=== PATIENT | female | born 1985 | race Caucasian/White ===

== ENCOUNTER 2016-10-28 17:58 | Inpatient (IN) | payer OTHER ==
[~2016-10-28] VITALS: Ht 162.6 cm; Wt 79.8 kg
[2016-10-28] MEDS ORDERED: DEXT 5%/LR + PITOCIN 20UNITS/L 1,000 ML IV SCH (19:35)
[2016-10-28] MEDS ORDERED: PREN-88 PO (19:36)
[2016-10-28] MEDS ORDERED: NALOXONE HCL 0.4 MG/ML 1ML VIAL IM PRN (19:45)
[2016-10-28] MEDS ORDERED: METHYLERGONOVINE MALEATE 0.2 MG/ML IM PRN (19:45)
[2016-10-28] MEDS ORDERED: LIDOCAINE HCL 1% 20ML VIAL (Pyxis) INJ INFIL SCH (19:45)
[2016-10-28] MEDS ORDERED: CARBOPROST TROMETHAMINE 250 MCG/ML AMPUL IM PRN (19:45)
[2016-10-28] MEDS ORDERED: MISOPROSTOL 100MCG TABLET VG SCH (19:45)
[2016-10-28] MEDS ORDERED: BUTORPHANOL TARTRATE 2 MG/ML VIAL IV PRN (19:45)
[2016-10-28 19:57] LABS: BASOPHILS % 0.6 % (0.0-2.0); DIFFERENTIAL COMMENT 0; EOSINOPHILS % 0.6 % (0.0-5.0); HEMATOCRIT. 30.8 % (36.0-48.0); HEMOGLOBIN. 10.3 g/dL (12.0-16.0); LYMPHOCYTES % 13.9 % (20.0-50.0); MEAN CORPUSCULAR HEMOGLOBIN 26.5 pg (28.0-32.0); MEAN CORPUSCULAR HGB CONC 33.4 g/dL (31.0-37.0); MEAN CORPUSCULAR VOLUME 79.2 fL (81.0-99.0); MEAN PLATELET VOLUME 10.4 fl (7.4-10.4); MONOCYTES % 4.5 % (2.0-8.0); NEUTROPHILS % 80.4 % (40.0-76.0); PLATELET 199 x1000/uL (130-400); RED BLOOD CELL COUNT 3.89 mill/uL (4.2-5.4); RED CELL DISTRIBUTION WIDTH 15.2 % (11.6-14.6); WHITE BLOOD COUNT 9.3 x1000/uL (4.5-11.0)
[2016-10-28 19:58] LABS: CLARITY URINE CLEAR (CLEAR); COLOR URINE YELLOW (YELLOW); GLUCOSE URINE NEGATIVE (NEGATIVE); KETONES URINE TRACE (NEGATIVE); LEUKOCYTE ESTERASE URINE 1+ (NEGATIVE); NITRITE URINE NEGATIVE (NEGATIVE); OCCULT BLOOD URINE NEGATIVE (NEGATIVE); PROTEIN URINE 1+ (NEGATIVE); SPECIFIC GRAVITY URINE 1.026 (1.005-1.030)
[2016-10-28] MEDS ORDERED: PENICILLIN G POTASSIUM 5 MMU in DEXT 5% WATER 100 ML IV SCH (20:00)
[2016-10-28 20:06] LABS: INR 0.9; PARTIAL THROMBOPLASTIN TIME 31.5 sec (24.0-34.0); PROTHROMBIN TIME 9.7 sec
[2016-10-28 20:09] LABS: *AMPHETAMINES SCREEN URINE NEGATIVE (NEGATIVE); *BARBITURATES SCREEN URINE NEGATIVE (NEGATIVE); *BENZODIAZEPINES SCREEN URINE NEGATIVE (NEGATIVE); *COCAINE SCREEN URINE NEGATIVE (NEGATIVE); CANNABINOID URINE SCREEN NEGATIVE (NEGATIVE); ECSTASY MDMA SCREEN URINE NEGATIVE (NEGATIVE); METHADONE URINE SCREEN NEGATIVE (NEGATIVE); OPIATES URINE SCREEN NEGATIVE (NEGATIVE); PHENCYCLIDINE URINE SCREEN NEGATIVE (NEGATIVE)
[2016-10-28 20:32] LABS: BACTERIA URINE 1+; RBC URINE 0-2 /hpf (0-2); SQUAMOUS EPITHELIAL CELL URINE FEW /lpf (RARE/1+)
[2016-10-28 20:36] LABS: HEPATITIS B SURFACE ANTIGEN NEGATIVE; RUBELLA IGG 129.8 IU/mL (4.99-10)
[2016-10-28] MEDS: LACTATED RINGERS 1,000 ML IV SCH (20:51)
[2016-10-29] MEDS: PENICILLIN G POTASSIUM 2.5 MMU in DEXTROSE 5% WATER 50 ML IV SCH ×2 (01:00→05:00)
[2016-10-29] MEDS: LACTATED RINGERS 1,000 ML IV SCH ×2 (01:16→09:27)
[2016-10-29] MEDS ORDERED: TERBUTALINE SULFATE 1MG/ML VIAL SUBCUT PRN (04:45)
[2016-10-29] MEDS ORDERED: MORPHINE SULFATE/PF 1MG/ML 10ML AMP ONE (11:08)
[2016-10-29] MEDS ORDERED: DEXAMETHASONE 4MG/ML 1ML VIAL ONE (11:21)
[2016-10-29] MEDS ORDERED: ONDANSETRON HCL 4MG/2ML VIAL ONE ×2 (11:21→11:25)
[2016-10-29] MEDS ORDERED: CEFAZOLIN SODIUM 1000MG/VIAL ONE (11:23)
[2016-10-29] MEDS ORDERED: OXYTOCIN 10 UNITS/ML 1ML ONE (11:40)
[2016-10-29] MEDS ORDERED: METOCLOPRAMIDE HCL 10MG/2ML VIAL ONE (11:42)
[2016-10-29] MEDS ORDERED: DEXT 5%/LR + PITOCIN 20UNITS/L 1,000 ML IV SCH (11:43)
[2016-10-29] MEDS ORDERED: BISACODYL 10MG SUPP PR PRN (11:45)
[2016-10-29] MEDS ORDERED: LANOLIN OINT 0.25 GM TUBE TOP PRN (11:45)
[2016-10-29] MEDS ORDERED: TETANUS, DIPHTHERIA, PERTUSSIS VAC/PF 0.5ML (>7YR OLD) IM ONE (11:45)
[2016-10-29] MEDS ORDERED: HYDROCODONE/ACETAMINOPHEN 5/325MG TABLET PO PRN (11:45)
[2016-10-29] MEDS ORDERED: ONDANSETRON HCL 4MG/2ML VIAL IV PRN (11:45)
[2016-10-29 12:11] LABS: BG BASE EXCESS -7.4 mmol/L (-2.0-2.0); BG FRACTION INSPIRED OXYGEN 21; BG PH 7.208 (7.350-7.450); BG PO2 < 30.3 mmHg (75.0-100.0); BG SAMPLE SITE CORD; BG VENT MODE ROOM AIR
[2016-10-29 12:16] LABS: BG FRACTION INSPIRED OXYGEN 21; BG HCO3 ACT 21.2 mmol/L (22.0-26.0); BG PCO2 43.2 mmHg (35.0-45.0); BG PH 7.308 (7.350-7.450); BG PO2 < 30.3 mmHg (75.0-100.0); BG SAMPLE SITE CORD; BG VENT MODE ROOM AIR
[2016-10-29] MEDS ORDERED: MEPERIDINE HCL/PF 25MG/ML CPJ IV PRN (12:30)
[2016-10-29] MEDS ORDERED: HYDROMORPHONE HCL/PF 2MG/ML CPJ IV PRN (12:30)
[2016-10-29] MEDS: SIMETHICONE 80MG TABLET CHEW PO SCH ×3 (12:40→21:00)
[2016-10-29 15:25] VITALS: BP 136/88
[2016-10-29 15:55] VITALS: BP 130/82
[2016-10-29 16:30] VITALS: BP 132/81
[2016-10-29 17:00] VITALS: BP 121/84
[2016-10-29 20:00] VITALS: BP 104/76
[2016-10-29] MEDS: DOCUSATE SODIUM 100MG CAPSULE PO SCH (21:00)
[2016-10-29] MEDS ORDERED: DIPHENHYDRAMINE 25MG CAPSULE PO PRN (21:00)
[2016-10-30] VITALS: BP 102/72
[2016-10-30] MEDS: HYDROCODONE/ACETAMINOPHEN 5/325MG TABLET PO PRN ×4 (03:04→16:51)
[2016-10-30 04:00] VITALS: BP 109/74
[2016-10-30 07:23] LABS: BASOPHILS % 0.3 % (0.0-2.0); EOSINOPHILS % 0.3 % (0.0-5.0); HEMATOCRIT. 24.7 % (36.0-48.0); HEMOGLOBIN. 7.9 g/dL (12.0-16.0); LYMPHOCYTES % 10.7 % (20.0-50.0); MEAN CORPUSCULAR HEMOGLOBIN 25.8 pg (28.0-32.0); MEAN CORPUSCULAR VOLUME 80.6 fL (81.0-99.0); MEAN PLATELET VOLUME 9.6 fl (7.4-10.4); MONOCYTES % 6.2 % (2.0-8.0); NEUTROPHILS % 82.5 % (40.0-76.0); PLATELET 153 x1000/uL (130-400); RED BLOOD CELL COUNT 3.07 mill/uL (4.2-5.4); RED CELL DISTRIBUTION WIDTH 15.8 % (11.6-14.6); WHITE BLOOD COUNT 12.7 x1000/uL (4.5-11.0)
[2016-10-30] MEDS: FERROUS SULFATE 325MG TABLET PO SCH (08:39)
[2016-10-30] MEDS: PRENATAL VIT/FE FUMARATE/FA TABLET PO SCH (08:39)
[2016-10-30 08:57] VITALS: BP 108/76
[2016-10-30 15:41] VITALS: BP 138/78
[2016-10-30 20:00] VITALS: BP 119/83
[2016-10-30] MEDS: DOCUSATE SODIUM 100MG CAPSULE PO SCH (21:09)
[2016-10-30] MEDS: SIMETHICONE 80MG TABLET CHEW PO SCH (21:11)
[2016-10-30] MEDS: IBUPROFEN 400MG TABLET PO PRN (22:27)
[2016-10-31] VITALS: BP 115/78
[2016-10-31] MEDS: IBUPROFEN 400MG TABLET PO PRN ×3 (04:44→18:15)
[2016-10-31 05:00] VITALS: BP 123/77
[2016-10-31 07:28] VITALS: BP 125/77
[2016-10-31] MEDS: FERROUS SULFATE 325MG TABLET PO SCH ×3 (08:20→18:16)
[2016-10-31] MEDS: PRENATAL VIT/FE FUMARATE/FA TABLET PO SCH (08:20)
[2016-10-31] MEDS: SIMETHICONE 80MG TABLET CHEW PO SCH ×4 (08:20→21:25)
[2016-10-31 16:07] VITALS: BP 117/82
[2016-10-31 19:40] VITALS: BP 129/86
[2016-10-31] MEDS: DOCUSATE SODIUM 100MG CAPSULE PO SCH (21:23)
[2016-10-31 23:50] VITALS: BP 118/79
[2016-10-31] MEDS: HYDROCODONE/ACETAMINOPHEN 5/325MG TABLET PO PRN (23:53)
[2016-11-01 03:50] VITALS: BP 128/86
[2016-11-01 07:54] VITALS: BP 111/62
[2016-11-01] MEDS: FERROUS SULFATE 325MG TABLET PO SCH (08:26)
[2016-11-01] MEDS: SIMETHICONE 80MG TABLET CHEW PO SCH (08:26)
[2016-11-01] MEDS: PRENATAL VIT/FE FUMARATE/FA TABLET PO SCH (08:26)
[2016-11-01] MEDS: IBUPROFEN 400MG TABLET PO PRN (08:26)
[2016-11-01] MEDS ORDERED: TETANUS, DIPHTHERIA, PERTUSSIS VAC/PF 0.5ML (>7YR OLD) IM ONE (09:00)
== END 2016-11-01 11:00 | disposition home or self-care (01) | DRG 766 ==
LOC: L&D 17:58 → OBSVTOIN 17:59 → 7EST PP/OB 10-29 17:00
PROVIDERS: ADMIT Obstetrics & Gynecology; ATTEND Obstetrics & Gynecology
PROC: 10D00Z1 Extraction of Products of Conception, Low, Open Approach (ICD-10-PCS; principal; 2016-10-29 11:54)
DX: O76 Abnormality in fetal heart rate and rhythm complicating labor and delivery (principal); O99.02 Anemia complicating childbirth; D64.9 Anemia, unspecified; Z37.0 Single live birth; Z3A.39 39 weeks gestation of pregnancy
CPT/HCPCS: 36415; 36600; 76815; 80305; 81001; 82805; 85025; 85610; 85730; 86592; 86703; 86762; 86850; 86870; 86900; 86920; 87340; 88307; 90715; G0378; J0595; J0690; J1100; J1170; J2274; J2405; J2540; J2590; J2765; J3105; J7060; J7120; A4315

== ENCOUNTER 2018-11-03 12:08 | Observation (INO) | payer MEDICAID ==
[~2018-11-03] VITALS: Ht 160 cm; Wt 68.0 kg
[2018-11-03] MEDS ORDERED: LACTATED RINGERS 1,000 ML IV SCH (13:15)
[2018-11-03 13:41] LABS: CLARITY URINE CLOUDY (CLEAR); COLOR URINE YELLOW (YELLOW); KETONES URINE NEGATIVE (NEGATIVE); LEUKOCYTE ESTERASE URINE NEGATIVE (NEGATIVE); NITRITE URINE NEGATIVE (NEGATIVE); OCCULT BLOOD URINE NEGATIVE (NEGATIVE); PH URINE 6.5 (4.5-8.0); PROTEIN URINE NEGATIVE (NEGATIVE); SPECIFIC GRAVITY URINE 1.008 (1.005-1.030); UROBILINOGEN URINE 0.2 E.U./dL (0.2-1.0)
[2018-11-03] MEDS ORDERED: PNV1TABL76 PO (13:56)
== END 2018-11-03 16:05 | disposition home or self-care (01) ==
LOC: 8 EST LDRP 12:08
PROVIDERS: ADMIT Obstetrics & Gynecology; ATTEND Obstetrics & Gynecology
DX: O26.893 Other specified pregnancy related conditions, third trimester (principal); R10.9 Unspecified abdominal pain; O99.89 Other specified diseases and conditions complicating pregnancy, childbirth and the puerperium; M54.9 Dorsalgia, unspecified; Z3A.34 34 weeks gestation of pregnancy
CPT/HCPCS: 81003; 99281; G0378; 96360; 96361; J7120

== ENCOUNTER 2018-11-25 11:29 | Observation (INO) | payer MEDICAID ==
[~2018-11-25 11:29] MED LIST: PNV1TABL76 PO
== END 2018-11-25 12:45 | disposition home or self-care (01) ==
LOC: 8 EST LDRP 11:29
PROVIDERS: ADMIT Specialist; ATTEND Specialist
DX: O26.893 Other specified pregnancy related conditions, third trimester (principal); R10.9 Unspecified abdominal pain; Z3A.38 38 weeks gestation of pregnancy
CPT/HCPCS: 99281; G0378